=== PATIENT | female | born 1980 | race Caucasian/White ===

== ENCOUNTER 2023-02-09 01:40 | Emergency (ER) | payer BC ==
[2023-02-09 02:09] LABS: APPEARANCE,URINE CLEAR; BILIRUBIN,URINE NEGATIVE (NEGATIVE); COLOR,URINE YELLOW; GLUCOSE,URINE NEGATIVE (NEGATIVE); KETONES,URINE NEGATIVE (NEGATIVE); LEUKOCYTE ESTERASE,URINE NEGATIVE (NEGATIVE); NITRITE,URINE NEGATIVE (NEGATIVE); OCCULT BLOOD,URINE MODERATE (NEGATIVE); PROTEIN,URINE NEGATIVE (NEGATIVE); UROBILINOGEN,URINE 0.2 EU/dL (<2.0)
[2023-02-09 02:20] LABS: BACTERIA,URINE RARE (NEGATIVE); EPITHELIAL CELLS,URINE FEW (NONE-FEW); MUCUS,URINE LIGHT (NONE-MOD); RBC,URINE 0-3 (0-2/HPF); WBC,URINE 0-1 (0-5/HPF)
[2023-02-09 02:45] LABS: A/G RATIO 0.8 (0.9-1.6); ALBUMIN 3.1 g/dL (3.4-5.0); BILIRUBIN TOTAL 0.2 mg/dL (0.2-1.0); CALCIUM 8.1 mg/dL (8.5-10.1); CARBON DIOXIDE,CO2 25.4 mmol/L (21.0-32.0); CREATININE 0.8 mg/dL (0.6-1.0); EST CRCL DRUG DOSING (CG) 78.3 mL/min; POTASSIUM,K 3.8 mmol/L (3.5-5.1); PROTEIN TOTAL,TP 6.9 g/dL (6.4-8.2)
== END 2023-02-09 03:26 | disposition home or self-care (01) ==
LOC: MW.ED 01:40
DX: R33.9 Retention of urine, unspecified (principal)
CPT/HCPCS: 36415; 51702; 80053; 81001; 87086; 99282; 99284

== ENCOUNTER 2023-02-10 06:19 | Inpatient (IN) | payer BC ==
[~2023-02-10 06:19] MED LIST: Sodium Chloride 0.9% 10 ML Syringe FLUSH PRN; Sodium Chloride 0.9% 2.5 ML Syringe FLUSH PRN; Sodium Chloride 0.9% 20 ML SDV IV PRN; ceFAZolin 2 GM in Sodium Chloride 0.9% 50 ML IV ONE
[2023-02-10] MEDS ORDERED: Scopalamine 1mg/3day Transdermal Patch TOP ONE (06:30)
[2023-02-10 07:09] LABS: HEMATOCRIT 33.1 % (37.0-47.0); HEMOGLOBIN 11.3 g/dL (12.0-16.0); MEAN CORPUSCULAR HGB CONC 34.1 g/dL (32.0-36.0); MEAN CORPUSCULAR VOLUME 90.7 fL (83.0-99.0); MEAN PLATELET VOLUME 8.5 fL (9.4-12.3); PLATELET COUNT,PLT 313 K/uL (150-400); RED BLOOD CELL COUNT 3.65 M/uL (4.10-5.30); WHITE BLOOD CELL COUNT,WBC 9.37 K/uL (3.9-11.3)
[2023-02-10] MEDS ORDERED: Lactated Ringers 1,000 ML IV SCH (07:15)
[2023-02-10 07:22] LABS: CALCIUM 8.8 mg/dL (8.5-10.1); CARBON DIOXIDE,CO2 26.7 mmol/L (21.0-32.0); CREATININE 0.8 mg/dL (0.6-1.0); EST CRCL DRUG DOSING (CG) 78.3 mL/min; POTASSIUM,K 3.5 mmol/L (3.5-5.1)
[2023-02-10] MEDS ORDERED: Methylene Blue 1% 100MG/10 ML SDV ONE (07:26)
[2023-02-10] MEDS ORDERED: Bupivacaine 0.25% 30 ML SDV ONE (07:27)
[2023-02-10] MEDS ORDERED: Propofol 200 MG/20 ML SDV ONE (07:28)
[2023-02-10] MEDS ORDERED: propofoL 50 ML ONE ×2 (07:28→10:12)
[2023-02-10] MEDS ORDERED: fentaNYL 250 MCG/5 ML SDV ONE ×2 (07:28→08:29)
[2023-02-10] MEDS ORDERED: Morphine 10 MG/ML SDV ONE (07:28)
[2023-02-10] MEDS ORDERED: Water For Injection, Sterile 40 ML ONE (07:31)
[2023-02-10] MEDS ORDERED: Lidocaine 2% 11 ML Jelly Filled Syringe ONE (07:36)
[2023-02-10] MEDS ORDERED: Ketamine 500 mg/10 ML MDV ONE (08:26)
[2023-02-10] MEDS ORDERED: Ondansetron 4 MG/2 ML SDV IVPUSH PRN ×2 (08:30→11:39)
[2023-02-10] MEDS ORDERED: Naloxone 0.4 MG/ML SDV IVPUSH PRN (08:30)
[2023-02-10] MEDS ORDERED: HYDROmorphone 1 MG/ML Syringe IVPUSH PRN (08:30)
[2023-02-10] MEDS ORDERED: fentaNYL 50 MCG/ML SDV IVPUSH PRN (08:30)
[2023-02-10] MEDS ORDERED: droPERidol 5 MG/2 ML SDV IVPUSH PRN (08:30)
[2023-02-10] MEDS ORDERED: Metoclopramide 10 MG/2 ML SDV IVPUSH PRN (08:30)
[2023-02-10] MEDS ORDERED: Morphine 2 MG/ML SYRINGE IVPUSH PRN (08:30)
[2023-02-10] MEDS ORDERED: Albuterol 0.083% 2.5 MG/3 ML Neb Soln NEB PRN (08:30)
[2023-02-10] MEDS ORDERED: propofoL 100 ML ONE (09:25)
[2023-02-10] MEDS ORDERED: Fluorescein 5 ML Vial ONE (10:06)
[2023-02-10] MEDS ORDERED: Ondansetron 4 MG/2 ML SDV ONE (10:07)
[2023-02-10] MEDS ORDERED: Sugammadex Sodium 200 MG/2 ML VIAL ONE (10:07)
[2023-02-10] MEDS ORDERED: Dexamethasone 4 MG/ML 5 ML MDV ONE (10:07)
[2023-02-10] MEDS ORDERED: Rocuronium Bromide 50 MG/5 ML Syringe ONE (10:07)
[2023-02-10] MEDS ORDERED: Glycopyrrolate 0.2 MG/ML SDV ONE (10:07)
[2023-02-10] MEDS ORDERED: Ketorolac 30 MG/ML SDV ONE (10:07)
[2023-02-10] MEDS ORDERED: HYDROmorphone 2 MG/ML Syringe ONE (10:46)
[2023-02-10] MEDS ORDERED: Acetaminophen/oxyCODONE 325-5 MG Tab PO PRN (11:39)
[2023-02-10] MEDS ORDERED: Promethazine 25 MG/ML SDV IM PRN (11:39)
[2023-02-10] MEDS ORDERED: Ketorolac 30 MG/ML SDV IVPUSH ONE (11:39)
[2023-02-10] MEDS ORDERED: Morphine 4 MG/ML Syringe IVPUSH PRN (11:39)
[2023-02-10] MEDS: Ketorolac 30 MG/ML SDV IVPUSH PRN ×2 (16:24→22:55)
[2023-02-10] MEDS: Acetaminophen/oxyCODONE 325-5 MG Tab PO PRN (21:50)
[2023-02-11] MEDS: Ketorolac 30 MG/ML SDV IVPUSH PRN ×3 (05:16→18:22)
[2023-02-11 06:39] LABS: BASOPHILS ABSOLUTE AUTO 0.02 K/uL (0.00-0.20); BASOPHILS PERCENT AUTO 0.2 % (0.0-1.0); EOSINOPHILS ABSOLUTE AUTO 0.02 K/uL (0.00-0.45); EOSINOPHILS PERCENT AUTO 0.2 % (0.0-6.0); HEMATOCRIT 24.1 % (37.0-47.0); HEMOGLOBIN 8.3 g/dL (12.0-16.0); IMMATURE GRAN ABSOLUTE AUTO 0.06 K/uL (0.00-0.05); IMMATURE GRAN PERCENT AUTO 0.5 % (0.0-0.4); LYMPHOCYTES ABSOLUTE AUTO 1.75 K/uL (1.00-4.80); LYMPHOCYTES PERCENT AUTO 14.3 % (24.0-44.0); MEAN CORPUSCULAR HEMOGLOBIN 31.2 pg (28.0-32.0); MEAN CORPUSCULAR HGB CONC 34.4 g/dL (32.0-36.0); MEAN CORPUSCULAR VOLUME 90.6 fL (83.0-99.0); MEAN PLATELET VOLUME 8.8 fL (9.4-12.3); MONOCYTES ABSOLUTE AUTO 1.11 K/uL (0.00-0.80); MONOCYTES PERCENT AUTO 9.1 % (0.0-8.0); NEUTROPHILS ABSOLUTE AUTO 9.25 K/uL (1.80-7.70); NEUTROPHILS PERCENT AUTO 75.7 % (41.0-71.0); PLATELET COUNT,PLT 270 K/uL (150-400); RED BLOOD CELL COUNT 2.66 M/uL (4.10-5.30); WHITE BLOOD CELL COUNT,WBC 12.21 K/uL (3.9-11.3)
[2023-02-11 06:53] LABS: CALCIUM 8.1 mg/dL (8.5-10.1); CARBON DIOXIDE,CO2 27.3 mmol/L (21.0-32.0); CREATININE 0.8 mg/dL (0.6-1.0); EST CRCL DRUG DOSING (CG) 78.3 mL/min; POTASSIUM,K 3.8 mmol/L (3.5-5.1)
[2023-02-11] MEDS: Acetaminophen/oxyCODONE 325-5 MG Tab PO PRN ×2 (08:46→13:50)
[2023-02-11] MEDS: Docusate Sodium 100 MG Cap PO SCH (20:44)
[2023-02-12] MEDS: Acetaminophen/oxyCODONE 325-5 MG Tab PO PRN (00:40)
[2023-02-12] MEDS: Ketorolac 30 MG/ML SDV IVPUSH PRN (04:07)
[2023-02-12] MEDS: Docusate Sodium 100 MG Cap PO SCH (08:26)
== END 2023-02-12 10:30 | disposition home or self-care (01) | DRG 519 ==
LOC: MW.SDS 06:19 → MW.OB 12:15
PROVIDERS: ADMIT Obstetrics & Gynecology; ATTEND Obstetrics & Gynecology
PROC: 0DBU0ZX Excision of Omentum, Open Approach, Diagnostic (ICD-10-PCS; 2023-02-10)
PROC: 0DB80ZX Excision of Small Intestine, Open Approach, Diagnostic (ICD-10-PCS; 2023-02-10)
PROC: 0UT90ZZ Resection of Uterus, Open Approach (ICD-10-PCS; principal; 2023-02-10 08:00)
PROC: 0UB20ZZ Excision of Bilateral Ovaries, Open Approach (ICD-10-PCS; 2023-02-10 08:00)
PROC: 0UB70ZZ Excision of Bilateral Fallopian Tubes, Open Approach (ICD-10-PCS; 2023-02-10 08:00)
DX: D25.0 Submucous leiomyoma of uterus (principal); N93.9 Abnormal uterine and vaginal bleeding, unspecified; N92.0 Excessive and frequent menstruation with regular cycle; N81.4 Uterovaginal prolapse, unspecified; N71.9 Inflammatory disease of uterus, unspecified; Z87.891 Personal history of nicotine dependence
CPT/HCPCS: 36415; 80048; 84703; 85025; 85027; 86850; 86900; 86901; A9270-GY; J0131; J0665; J0690; J1100; J1170; J1885; J2270; J2405; J2704; J3010; J3490; J7030; J7120; Q9968